=== PATIENT | female | born 2000 | race American Indian/Alaskan Native ===

== ENCOUNTER 2021-06-07 10:00 | Emergency (ER) | payer MEDICAID ==
[2021-06-07 11:56] VITALS: BP 155/98
--- NOTE | 2021-06-07 12:16 | Emergency Department Report ---
Minor Respiratory - HPI Chief Complaint: Sore Throat Stated Complaint: COUGH AND CONGESTION Time Seen by Provider: 06/07/21 12:01 Minor Respiratory: Yes Rhinorrhea, Yes Sore Throat, Yes Able to Tolerate Fluids, Yes Cough, No Ear Pain, No Sick Contacts (Nasal congestion), No Hemoptysis, No Shortness of Breath, No Fever Other History: 20-year-old -[place] female presents to the emergency room for 2-day history of sore throat that is mostly scratchy, nasal congestion body aches and cough. She is unvaccinated for Covid and flu. She denies any fever no chills no shortness of breath. She does admit to posttussis emesis. She denies any past medical history currently takes no meds and has allergy to penicillin. ED Review of Systems ROS: Stated complaint: COUGH AND CONGESTION Other details as noted in HPI Comment: All other systems reviewed and negative ED Past Medical Hx - Past Medical History Previous Medical History?: No - Surgical History Past Surgical History?: No Minor Respiratory Exam - Exam General: Vital signs noted. No distress. Alert and acting appropriately. HEENT: Yes Moist Mucous Membranes, No Pharyngeal Erythema, No Pharyngeal Exudates, No Rhinorrhea, No Conjuctival Injection, No Frontal Tenderness, No Maxillary Tenderness Ear: Neither TM Bulge, Neither TM Erythema, Neither EAC Pain, Neither EAC Discharge Neck: Yes Supple, No Adenopathy Lungs: Yes Good Air Exchange, No Wheezes, No Ronchi, No Stridor, No Cough, No Labored Respirations, No Retractions, No Use of Accessory Muscles, No Other Abnormal Lung Sounds Neurologic: Alert and oriented, no deficits. Musculoskeletal: Unremarkable. ED Course Vital Signs 06/07/21 11:54 Temperature 98.8 F Pulse Rate 89 Respiratory 16 Rate Blood Pressure 155/98 [Left] O2 Sat by Pulse 100 Oximetry ED Medical Decision Making - Medical Decision Making 20-year-old -[place] female presents to the emergency room for 2-day history of sore throat that is mostly scratchy, nasal congestion body aches and cough. She is unvaccinated for Covid and flu. She denies any fever no chills no shortness of breath. She does admit to posttussis emesis. She denies any past medical history currently takes no meds and has allergy to penicillin. Patient has stable vital signs examination is within normal limits. I discussed with patient she has symptoms most consistent with Covid or viral infection. Encourage patient to get Covid tested. Increase her fluids take Tylenol ibuprofen for body aches sore throat she can get [id number] Robitussin for cough. Critical care attestation.: If time is entered above; I have spent that time in minutes in the direct care of this critically ill patient, excluding procedure time. ED Disposition Clinical Impression: Suspected COVID-19 virus infection, Viral illness Disposition: HOME / SELF CARE / HOMELESS Is pt being admited?: No Does the pt Need Aspirin: No Condition: Stable Instructions: Viral Respiratory Infection, [id number], Prevent the Spread of COVID-19 if You Are Sick - CDC, COVID-19: How to Protect Yourself and Others - CDC, COVID-19 Frequently Asked Questions Additional Instructions: Your symptoms appear most consistent with a nonspecific viral syndrome. However, given this current pandemic, COVID-19 is in the differential of possi bilities. Despite your previous negative COVID-19 test, I do recommend repeat outpatient Covid 19 testing. In the meantime, isolate/quarantine yourself and stay away from anyone who is elderly, immunocompromised or chronically ill. You can use ibuprofen every 6-8 hours and Tylenol every 4-8 hours, using the dosing on the back of the bottle, as needed for any fever or body aches. Try [id number] Robitussin for cough. Return to the emergency department with any worsening of your symptoms, development of chest pain or shortness of breath, or with any acute distress. Referrals: Your, primary care provider [Other] - 3-5 Days Forms: Work/School Release Form(ED) Time of Disposition: 12:15
== END 2021-06-07 13:04 | disposition home or self-care (01) ==
LOC: ED 10:00
DX: B34.9 Viral infection, unspecified (principal); Z20.822 Contact with and (suspected) exposure to COVID-19
CPT/HCPCS: 99282